=== PATIENT | male | born 1970 | race African-American/Black ===

== ENCOUNTER 2017-08-06 22:45 | Emergency (ER) | payer OTHER ==
[2017-08-07] MEDS ORDERED: Ibuprofen 200 MG TAB ONE (00:13)
[2017-08-07] MEDS ORDERED: Acetaminophen 325 MG TAB ONE (00:13)
--- NOTE | 2017-08-07 10:53 | ULT ---
PRELIMINARY REPORT/[facility]/EMERGENTY AFTER-HOURS PROCEDURE US Duplex Bilateral Lower Extremity Veins CLINICAL HISTORY: 47 years old, male; Signs and symptoms; Swelling of limb; Lower extremity, bilateral TECHNIQUE: Real-time duplex ultrasound scan of the bilateral lower extremity veins integrating B-mode two dimens ional vascular structure, Doppler spectral analysis, color flow Doppler imaging and compression. COMPARISON: No relevant prior studies available. FINDINGS: Right leg: No visible clot in the included veins. The included veins appear normally compressible. Du plex Doppler evaluation demonstrates flow in the evaluated veins. Left leg: No visible clot in the included veins. The included veins appear normally compressible. Dup jennifer Doppler evaluation demonstrates flow in the evaluated veins. IMPRESSION: No evidence of acute right lower extremity DVT. No evidence of acute left lower extremity DVT. Thank you for allowing us to participate in the care of your patient. Dictated and Authenticated by: Michael Gonzalez MD 08/07/2017 1:24 AM Central Time ([place] & [place]) FINAL REPORT VENOUS DUPLEX SONOGRAM BILATERAL LOWER EXTREMITIES PERFORMED ON AN EMERGENCY BASIS: Date: 08/07/17 Time: 0032 hours HISTORY: Bilateral leg pain and edema. FINDINGS: Findings agree with the preliminary report by Isael. Good color and spectral Doppler flow are apparent . No sonographic evidence of deep venous thrombosis within either lower extremity. POS: [facility]
== END 2017-08-07 02:17 | disposition home or self-care (01) ==
LOC: ERS 22:45
DX: I89.0 Lymphedema, not elsewhere classified (principal); I10 Essential (primary) hypertension; E78.00 Pure hypercholesterolemia, unspecified; E11.9 Type 2 diabetes mellitus without complications; I25.2 Old myocardial infarction; F17.220 Nicotine dependence, chewing tobacco, uncomplicated; Z79.4 Long term (current) use of insulin; Z79.899 Other long term (current) drug therapy
CPT/HCPCS: 93970